=== PATIENT | male | born 1960 | race African-American/Black ===

== ENCOUNTER 2017-03-27 20:10 | Emergency (ER) | payer OTHER ==
[~2017-03-27] VITALS: Ht 190.5 cm; Wt 92.4 kg
[2017-03-27 20:16] VITALS: BP 135/80; PULSE 87; RESP 18; O2SAT 97
--- NOTE | 2017-03-27 21:30 | ED.REPORT ---
HPI-General Illness Date of Service Mar 27, 2017 ED Provider: Matt Hdz MD This is a 56 year old male with history of bipolar disorder who presents to the emergency department for swelling on his right cheek. Patient notes that this started 3 days ago and has been getting bigger. Today he started noticing pain associated with opening his mouth and pushing on it. He also noticed pustular discharge and blood when breaking open the scab on his cheek. He has not had anything like this before. He denies any fevers, chills, nausea, vomiting, changes in vision and hearing, neck pain or swelling, difficulty with breathing or swallowing and chest pain. He has noticed pain in his lymph nodes under his chain. He is uncertain if it's a result from a insect bite or not. He reports he 's never had MRSA. Nursing Notes Stated Complaint: INFECTED INSECT BITE Chief Complaint: Skin Rash/Abscess Nursing Notes Reviewed: Yes Allergies: Coded Allergies: Penicillins (Verified Allergy, Unknown, respiratory failure, 03/27/17) Scheduled Clindamycin (Clindamycin) 300 Mg Capsule 600 MG PO TID General Time Seen by MD: 21:10 Chief Complaint Other (Swelling on right cheek) Hx Obtained From: Patient Past Medical History Past Medical History Bipolar disorder Past Surgical History Denies Smoking History Never Smoker Social History Alcohol Use: Denies alcohol use Drug Use: THC (Once every 2 weeks) Review of Systems Full Review of Systems Constitutional: Denies: Chills, Fever Eyes: Denies: Visual loss bilateral Ears / Nose / Throat: Denies: Ear drainage bilateral, Earache bilateral, Nasal congestion, Sinus problem, Sore throat, Throat pain, Throat swelling Respiratory: Denies: Shortness of breath Cardiovascular: Denies: Chest pain GI: Denies: Abdominal pain Neurologic: Denies: Vision change Complete sys rev & neg: except as marked. Physical Exam Vital Signs Vital Signs Date Time Temp Pulse Resp B/P Pulse Ox O2 Delivery O2 Flow Rate FiO2 03/27/17 23:44 36.8 92 16 128/78 96 Room Air 03/27/17 20:16 36.2 87 18 135/80 97 Room Air Initial VS: Reviewed General/Constitutional: Well-developed, Well-nourished Head / Eyes: Atraumatic, Normocephalic, PERRL ENT: Mucous membranes moist, Conjunctiva normal, No scleral icterus Neck: Supple, Full range of motion Respiratory: Breath sounds normal, Clear to auscultation, No respiratory distress Cardiovascular: Regular rate & rhythm, Heart sounds normal Abdomen / GI: Soft, Non-tender, No guarding Skin: Warm, Dry Neurologic: Alert, Oriented, Nonfocal Psychiatric: Mood/affect normal, Behavior normal, Normal thought content General/Constitutional: Awake, Alert, No acute distress, Well appearing, Not toxic appearing Head / Eyes: PERRL, EOMI ENT: Airway patent, Mucous membranes moist, No peritonsillar abscess, Nose exam NL Right maxillary tenderness. Swelling on right cheek extending form mandible to right maxilary sinus. Hard circumferential, movable mass palpated within the swelling roughly 1.5 inches in diameter. Overlying, there is a 5 mm scab formation that is dry without any drainage. Neck / Muscle Tenderness: Positive: Submandibular R... (Moderate) Adenopathy: Positive: Submandibular R, Submental R No left sided lymphadenopathy noted Procedures Incision & Drainage Abscess Time: 21:50 Procedure Performed by: ED physician Consent / Setup / Site Prep: Consent from patient Location of Abscess: Right cheek Skin Preparation Agent: Shurclens Local Anesthesia: Lidocaine 1% Incised Abscess with Scalpel: #15 Pus Drained: Large, Purulent discharge, Bloody Post-Procedure / Complications: Culture obtained, Gram stain ordered, No complications, Condition improved, Tolerated procedure well, Patient stable Re-Eval/Medical Decision Med Decision/Clinical Course This is a 56-year-old male with history of bipolar disorder who presents to the emergency department for right cheek swelling ongoing for last 3 days. Patient states this has been growing and has had pustular drainage. On exam there is a hard mass that is movable about 1.5 inches in diameter, with an overlying scab. This is likely due to an abscess secondary to folliculitis. There does not seem to be any involvement of the throat at this time no concerns for retropharyngeal abscess as patient is able to swallow and breathe without any difficulty. When looking at site with bedside ultrasound, fluid was seen just below his scab. I&D was done with large amount of bloody, pustular discharge, which was swabbed and sent for culture. Patient tolerated procedure well. Given clindamycin 600 mg TID for 7 days. Patient given instructions on when to return to the emergency department. Patient agreed to plan. Counseled Regarding: Diagnosis, Lab results, Need for follow-up, When/why to return to ED Discharge & Departure Shift Change Sign-Out Response to Therapy: Improved Primary Impression: Abscess Disposition: Home Discharge Condition All VS Reviewed: Yes Condition: Stable Patient Instructions: Abscess Incision and Drainage (DC) Additional Instructions: You had an abscess on your right cheek that was incised and drained here in the emergency department. We sent a culture of the drainage to the lab to evaluate for MRSA. We will treat for infection as well with antibiotics. Clindamycin two pills, 3 times per day for 7 days. If you start to develop worsening of your swelling, fevers, chills, tightness in your throat, difficulty with swallowing, return to the emergency department. Follow up with your PCP in 1 week. Attending Statement As attending of record for this patient, I conducted an independent history and physical examination, and agree with the documentation per the resident note above. I supervised and was present at all times, and participated in the procedure performed for the patient. Donal Cohen DO Mar 27, 2017 21:30 Matt Hdz MD Mar 28, 2017 07:14
[2017-03-27] MEDS ORDERED: CLIN-78 PO (23:13)
[2017-03-27 23:44] VITALS: BP 128/78; PULSE 92; RESP 16; O2SAT 96
== END 2017-03-27 23:00 | disposition home or self-care (01) ==
LOC: SED 20:10
DX: L02.01 Cutaneous abscess of face (principal); F12.10 Cannabis abuse, uncomplicated; Z88.0 Allergy status to penicillin